=== PATIENT | female | born 1965 | race Caucasian/White ===

== ENCOUNTER 2017-02-05 05:35 | Day surgery (SDC) | payer OTHER ==
[~2017-02-05] VITALS: Ht 157.5 cm; Wt 94.6 kg
[2017-02-05] VITALS (7 sets, daily range): BP systolic 105–132; BP diastolic 61–86; PULSE 63–75; RESP 11–16; O2SAT 95–97
[~2017-02-05 05:35] MED LIST: LORA10CA PO; Lactated Ringer's 1,000 ML IV ONE; MELO15TA14 PO; MULT-1018 PO; TREXALL; folic acid
[2017-02-05] MEDS ORDERED: Propofol 10,000 mCg/mL 20 mL Inj ONE (05:36)
[2017-02-05] MEDS ORDERED: Ondansetron 2 mg/mL 2 mL Inj ONE (05:36)
[2017-02-05] MEDS ORDERED: fentaNYL-PF 50 mCg/mL 2 mL Inj ONE (05:36)
[2017-02-05] MEDS ORDERED: CeFAZolin Inj 2 GM in IV Premix 1 EACH IV ONE (06:00)
[2017-02-05] MEDS ORDERED: Lactated Ringer's 500 ML IV PRN (07:49)
[2017-02-05] MEDS ORDERED: Lactated Ringer's 1,000 ML IV SCH (07:49)
[2017-02-05] MEDS ORDERED: Atropine 0.4 mg/mL Inj IVPUSH PRN (07:50)
[2017-02-05] MEDS ORDERED: HYDROmorphone 1 mg/mL Inj IVPUSH PRN (07:50)
[2017-02-05] MEDS ORDERED: Labetalol 5 mg/mL 4 mL Inj IV PRN (07:50)
[2017-02-05] MEDS ORDERED: fentaNYL-PF 50 mCg/mL 2 mL Inj IVPUSH PRN (07:50)
[2017-02-05] MEDS ORDERED: Phenylephrine 10,000 mCg/mL Inj IVPUSH PRN (07:50)
[2017-02-05] MEDS ORDERED: MetoCLOpramide 5 mg/mL 2 mL Inj IVPUSH PRN (07:50)
[2017-02-05] MEDS ORDERED: Ondansetron 2 mg/mL 2 mL Inj IVPUSH PRN (07:50)
[2017-02-05] MEDS ORDERED: EPHEDrine Sulfate 50 mg/mL Inj IVPUSH PRN (07:50)
[2017-02-05] MEDS ORDERED: Ropivacaine-PF 0.5% 30 mL Inj INFILTRATE ONE (07:57)
[2017-02-05] MEDS ORDERED: Dexamethasone 4 mg/mL Inj INTRARTICU ONE (07:58)
--- NOTE | 2017-02-05 08:01 | PCM.HPANE ---
Patient Data Surgeon Admitting Provider: Attending Provider:Ryan Alvarenga MD Primary Care Physician:Manjinder Travis MD Other Provider:Emely Sutton Anesthesia Reason for Visit Left Medial Meniscal Tear Ht/WT & BMI Height (Feet): 5 Height (Inches): 2 Weight (Kilograms): 94.6 Body Mass Index 38.00 Allergies Coded Allergies: bupivacaine (Verified Allergy, Intermediate, facial swelling, 09/14/14) Past Anesthesia History Anesthesia History: Denies:: Abnormal Airway, Anesthesia Reactions, Difficult Intubation, Fam Anesthesia Reaction (sister-"did not go well" violent reaction) , Fam Malignant Hypertherm, Malignant Hyperthermia Diabetes History Hx Diabetes?: No MRSA MRSA: No Medications Hypertension Medication: No Home Meds Incl Beta Steffi: No Reported Medications [trexall] No Conflict Check20 Mg WEEKLY 01/31/17 Multivitamin (Multi Vitamin Daily)1 Each Tablet1 Each PO DAILY 30 Days Ref 0 01/31/17 Meloxicam (Mobic)15 Mg [id number] Mg PO DAILY 30 Days Ref 0 01/31/17 Loratadine (Claritin)10 Mg [id number] Mg PO DAILY Ref 0 01/31/17 [folic acid] No Conflict Check2,000 U Daily 01/31/17 Discontinued Reported Medications Hydrocodone/Acetaminophen (Vicodin 5-300 mg Tablet)1 Each Tablet1-2 Each PO Q4 PRN For Pain Ref 0 09/14/14 Cyclobenzaprine 10 Mg [id number] Mg PO TID PRN For Pain 09/14/14 Albuterol HFA 8.5 Gm Hfa.aer.ad1 Puff IH Q4 PRN For Shortness of Breath #1 INHALER Ref 0 09/14/14 Beclomethasone Dipropionate (Qvar)8.7 Gm Aer.w.adap8.7 Gm IH 09/14/14 History HEENT History: Denies:: Abnormal Airway Cataracts Difficult Intubation Dysphagia Glaucoma Hearing Problem Sinus Problem TMJ Hx of Heart Problems?: No Cardiovascular History: Denies:: AICD Atrial Fibrillation Chest Pain Hypertension Irregular Heartbeat Pacemaker Valvular Heart Disease Hx of Respiratory Problem?: Yes Respiratory History: Positive for:: Asthma (with seasonal allergies) Pneumonia (pneumonia - 5 or 6 years ago) Use of Inhalers / NEBS (with asthma) Denies:: COPD Cough Hemoptysis Oxygen Administration Tuberculosis Use of C-PAP Machine Hx Neurologic Problems?: No Neurological History: Denies:: CVA Dementia Headaches Multiple Sclerosis Parkinson's Disease Seizures TIA Hx of GI Problems?: No Gastrointestinal History: Denies:: Cirrhosis Diverticulitis Gastroesphageal Reflux Hepatitis Hiatal Hernia Rectal Bleeding Hx of Problems?: No Genitourinary History: Denies:: Kidney Stones Urinary Tract Infection Female Hx: Denies:: Currently Problems with Breasts? Skin History: Denies:: History Skin Disorders? Pressure Ulcers Hx Musculoskeletal Problems?: Yes Musculoskeletal History: Positive for:: Back Injury (neck issues) Musculoskeletal Trauma (left knee current admission problem) Osteoarthritis (psoriatric arthritis) Denies:: Fibromyalgia Joint Replacement Psycho Social History: Denies:: Anxiety Hx Depression Hx Surgeries?: Yes (left ankle debridement, [facility]) Hx Any Other Health Problems?: Yes Other History: Denies:: Cancer Thyroid Disease History Blood Transfusions: Positive for:: Accept Blood Products? Denies:: Blood Transfusions Hx Diabetes: No Hx Alcohol Use: YesAlcoholic Drinks Per Day: twice monthlyHx Substance Use: No Smoking Status: Never Smoker Have You Smoked inLast 12 mo: No Stop/Bang S-Snoring: Do You Snore Loudly: No T-Tired: feel tired, fatigued: No O-Obsered: Observed not breath: No P-Blood Pressure: treated: No B- Body Mass Index > 35 kg/m2: Yes A- Age over 50: Yes N- Neck Large Circumference: No G- Gender Male: No KEVAN Total Score: 2 Risk Assessment Category Category 1A: Patient has history of documented sleep apnea, and HAS NOT received any narcotic, sedative or anesthesia administration during this stay. Category 1B: Patient has history of documented sleep apnea, and HAS received any narcotic , sedative or anesthesia administration during this stay Category 2: Patient has SUSPECTED Obstructive Sleep Apnea, and HAS received any narcotic , sedative or anesthesia administration during this stay. Category 3: Patient has SUSPECTED Obstructive Sleep Apnea and HAS NOT received narcotic, sedative or anesthesia administration during this stay. Category 4: Outpatient in Procedural Areas with known sleep apnea or who screen positive for High Risk via the STOP/BANG questionnaire. Exam Exam Vital Signs Vital Signs Date Time Temp Pulse Resp B/P Pulse Ox O2 Delivery O2 Flow Rate FiO2 02/05/17 06:01 36 75 16 127/71 95 Room Air General Appearance: Alert, Oriented X3, Cooperative, No Acute Distress HEENT/AIRWAY: MP 2, Neck Movement (FROM), Mouth Opening (3 FBMO) Lungs: Clear to Auscultation, Normal Air Movement Heart: Exam Unremarkable, Regular Rate/Rhythm, No Murmurs/Rubs/Gallops Meds/Labs/Diagnostics Admission Meds Current Medications Lactated Ringer's (Lr) 1,000 ml @ 120 mls/hr Q8H20M ONCE IV Last administered on 02/05/17t 05:52; Start 02/05/17 at 05:00; Stop 02/05/17 at 13:19 Plan Impression Patient chart reviewed, patient interviewed and anesthestic plan with risks, benefits, and alternatives discussed, and informed consent obtained. NPO Status: 02/04/17 ASA Physical Status: ASA2 Mod Systemic Disease Anesthetic Plan: GA Bene/Risks/Altern/Consents: Yes HP Complete Prior to Induction: Yes Other Patient had significant hesitation over sedation/general anesthesia for surgery. Unfortunately, she has a significant lower back issue and a SAB could have potentially exacerbated her underlying back problems. After a long discussion with both the anesthesiologist and surgeon (Dr. Alvarenga), the patient agreed to general anesthesia with an LMA. I will try to keep sedation to a minimum while still keeping her comfortable. Cosme Garcia MD Feb 05, 2017 06:56
--- NOTE | 2017-02-05 09:01 | PCM.ANEP1 ---
Post Anesthesia Phase 1 PACU Phase 1 Assessment Vital Signs Vital Signs Date Time Temp Pulse Resp B/P Pulse Ox O2 Delivery O2 Flow Rate FiO2 02/05/17 08:44 64 14 108/66 96 Room Air 02/05/17 08:40 36.6 63 14 105/61 97 Room Air 02/05/17 08:35 64 12 117/78 97 Room Air 02/05/17 08:30 67 14 132/79 95 Room Air 02/05/17 08:25 36.7 67 11 129/71 95 Room Air 02/05/17 06:01 36 75 16 127/71 95 Room Air Anesthetic Administered: GA Level of Alertness: Awake, talking BOTELLO's with Equal Strength: Yes Pain: No Nausea or Vomiting: No Oxygen Delivery: Simple Mask Lungs: Clear to Auscultation, Normal Air Movement Dermatome Level: Full Sensation Cosme Garcia MD Feb 05, 2017 09:01
--- NOTE | 2017-02-05 09:01 | PCM.ANEP2 ---
Post Anesthesia Evaluation ASA/CMS Post Anesthesia VS in Patient's Normal Range?: Yes Resp Stable; Airway Patent?: Yes CV Function & Hydration Stable: Yes Mental Status Recovered?: Yes Pain control Satisfactory?: Yes N/V Control Satisfactory?: Yes Cosme Garcia MD Feb 05, 2017 09:01
--- NOTE | 2017-02-05 23:03 | OP ---
[address] [address] OPERATIVE REPORT PATIENT: DILLAN VINCENT : 1965 MR#: [id number] ADMIT: 02/05/2017 JOB ID: [id number] DATE OF SURGERY: PREOPERATIVE DIAGNOSIS(ES): Internal derangement, left knee. POSTOPERATIVE DIAGNOSIS(ES): Internal derangement, left knee. PROCEDURE: Medial meniscectomy. SURGEON: Ryan Alvarenga MD. COMPLICATIONS: None. INDICATIONS: This woman has had progressive mechanical symptoms, recurrent effusions, unresponsive to conservative treatment. MRI documents presence of medial meniscal tear. She elects to proceed with medial meniscectomy, understanding and accepting the potential risks and complications, which includes, but is not limited to infection, thromboembolic, neurovascular events. She also knows that she has some underlying osteoarthritic changes and these cannot be treated with an arthroscopic procedure. PROCEDURE: The patient was prepped and draped in usual sterile fashion. Anteromedial and anterolateral portals were utilized to perform a diagnostic arthroscopy of the left knee. Intact ACL, normal lateral compartment. Clear suprapatellar pouch and medial lateral gutters were encountered. A deep radial tear with anterior posterior flaps of the medial meniscus was encountered. There was grade 2 chondromalacia of the medial femoral condyle also noted. After the diagnostic arthroscopy, attention was turned to the medial side. A meniscal resector blade, followed by baskets, were utilized to remove all unstable meniscal tissue carefully, contouring back to smooth stable meniscal tissue. Wounds were irrigated with sterile irrigant. All debris was removed. Sterile dressings were applied at the end of the case after the knee had been fully lavaged. Portals were closed with nylon suture. The patient returned to the recovery room in stable condition. There were no complications.
== END 2017-02-05 23:59 | disposition home or self-care (01) ==
LOC: SAS 05:35
PROVIDERS: ATTEND Orthopaedic Surgery
DX: M23.304 Other meniscus derangements, unspecified medial meniscus, left knee (principal); M25.462 Effusion, left knee; M17.12 Unilateral primary osteoarthritis, left knee; M54.9 Dorsalgia, unspecified
CPT/HCPCS: 29881; J0131; J0690; J1100; J1885; J2405; J2795; J3010; J7120